=== PATIENT | female | born 1995 | race Caucasian/White ===

== ENCOUNTER 2022-11-29 23:28 | Emergency (ER) | payer MEDICAID ==
[~2022-11-29] VITALS: Ht 162.6 cm; Wt 97.1 kg
[2022-11-30 00:02] VITALS: BP_SYST 154; PULSE 66; RESP 20; TEMP 98.1; O2SAT 98
--- NOTE | 2022-11-30 00:07 | NUR ---
pPatient to ER bed 03 to gown for evaluation. Side rails up. Report given to STACY ONOFRE.
--- NOTE | 2022-11-30 01:07 | NUR ---
Dr. JAY at bedside examining the patient.
[2022-11-30] MEDS ORDERED: AUG875 PO (01:12)
[2022-11-30] MEDS ORDERED: ROBAC PO (01:12)
[2022-11-30] MEDS ORDERED: KETOROLAC TROMETHAMINE 30 MG VIAL IM ONE (01:15)
[2022-11-30 01:23] VITALS: BP_SYST 128; PULSE 88; RESP 18; TEMP 97.9; O2SAT 99
--- NOTE | 2022-11-30 01:24 | NUR ---
Patient given written and verbal discharge instructions and verbalizes understanding. ER MD discussed with patient the results and treatment provided. Patient in stable condition. ID arm band removed. Rx of AUGMENTIN AND ROBITUSSIN given. Patient educated on pain management and to follow up with PMD. Pain Scale 0/10. Opportunity for questions provided and answered. Medication side effect fact sheet provided.
== END 2022-11-30 01:23 | disposition home or self-care (01) ==
LOC: SED 23:28
DX: H66.91 Otitis media, unspecified, right ear (principal); J06.9 Acute upper respiratory infection, unspecified; R05.9 Cough, unspecified; R09.81 Nasal congestion; J02.9 Acute pharyngitis, unspecified; Z79.899 Other long term (current) drug therapy
CPT/HCPCS: 99283; 96372; J1885